=== PATIENT | male | born 1940 | race Caucasian/White ===

== ENCOUNTER 2016-07-15 08:25 | Outpatient (CLI) | payer MEDICARE, OTHER | END 2016-07-15 08:26 | disposition home or self-care (01) | DX: I10 Essential (primary) hypertension (principal); E78.5 Hyperlipidemia, unspecified; R73.9 Hyperglycemia, unspecified ==

== ENCOUNTER 2018-12-26 07:54 | Outpatient (CLI) | payer MEDICARE, OTHER ==
--- NOTE | 2018-12-26 13:03 | XRAY Report ---
Reason: KNEE PAIN,LEFT Procedure Date: 12/26/2018 Accession Number: [id number] / [id number] Procedure: XR - Knee 3 View LT CPT Code: FULL RESULT: EXAM: LEFT KNEE RADIOGRAPHY EXAM DATE: 12/26/2018 08:11 AM. CLINICAL HISTORY: KNEE Pain, left. COMPARISON: None. TECHNIQUE: 3 views. FINDINGS: Bones: Osteopenia. No definite fracture or other bone lesion. Joints: Normal. No effusion. No subluxations. Soft Tissues: Unremarkable. IMPRESSION: No acute disease. [facility]
== END 2018-12-26 07:55 | disposition home or self-care (01) ==
LOC: DI 07:54
PROVIDERS: ATTEND Family Medicine
DX: M25.562 Pain in left knee (principal)

== ENCOUNTER 2019-12-28 10:35 | Outpatient (CLI) | payer MEDICARE, OTHER ==
--- NOTE | 2019-12-28 13:07 | XRAY Report ---
PROCEDURE: Cervical Spine 2 View INDICATIONS: NECK PAIN TECHNIQUE: 3 view(s) of the cervical spine were acquired. COMPARISON: None. FINDINGS: Bones: No fractures or dislocations to the T1 level. The lateral masses of C1 appear intact on the odontoid view. No suspicious bony lesions. There is mild degenerative disc disease seen on the later al view, and no subluxation is associated. Mild to moderate facet osteoarthritis is seen on the front al view from C4 through C7. Soft tissues: No prevertebral soft tissue swelling. IMPRESSION: No trauma found. Mild/moderate degenerative facet osteoarthritis, mild degenerative disc disease. No subluxation, no definite spinal or foraminal stenosis is found. Reviewed by: Lobo Lowe MD on 12/28/2019 1:06 PM PDT Approved by: Lobo Lowe MD on 12/28/2019 1:06 PM PDT Station ID: [id number]
== END 2019-12-28 10:36 | disposition home or self-care (01) ==
LOC: DI 10:35
PROVIDERS: ATTEND Family Medicine
DX: M50.30 Other cervical disc degeneration, unspecified cervical region (principal); M47.812 Spondylosis without myelopathy or radiculopathy, cervical region
CPT/HCPCS: 72040

== ENCOUNTER 2020-04-05 08:23 | Outpatient (CLI) | payer MEDICARE, OTHER ==
[2020-04-05 11:58] LABS: ALBUMIN 4.2 g/dL (3.2-5.5); ALBUMIN/GLOBULIN RATIO 1.4 (1.0-2.2); ALKALINE PHOSPHATASE 63 IU/L (42-121); ALT ALANINE AMINOTRANSFERASE 14 IU/L (10-60); AST ASPARTATE AMINOTRANSFERASE 14 IU/L (10-42); BILIRUBIN,TOTAL 0.9 mg/dL (0.2-1.0); BUN - BLOOD UREA NITROGEN 18 mg/dL (6-20); CARBON DIOXIDE - CO2 26 mmol/L (21-32); CHLORIDE 103 mmol/L (101-111); CHOLESTEROL 141 mg/dL; CREATININE 1.1 mg/dL (0.6-1.2); GLUCOSE 104 mg/dL (70-100); HDL CHOLESTEROL 47 mg/dL; LDL CHOLESTEROL,CALCULATED 70 mg/dL; LDL/HDL RATIO 1.5 (<3.6); SODIUM 138 mmol/L (135-145); TOTAL PROTEIN 7.3 g/dL (6.7-8.2); VLDL CHOLESTEROL 24 mg/dL
[2020-04-05 12:07] LABS: HEMOGLOBIN A1c% 5.1 % (4.27-6.07)
[2020-04-05 15:16] LABS: BASOPHILS % (AUTO) 0.7 %; EOSINOPHILS # (AUTO) 0.1 10^3/uL (0.0-0.7); EOSINOPHILS % (AUTO) 1.4 %; HGB - HEMOGLOBIN 14.1 g/dL (14.0-18.0); LYMPHOCYTES % (AUTO) 17.9 %; MEAN CORPUSCULAR HEMOGLOBIN 29.7 pg (27.0-31.0); MEAN CORPUSCULAR HGB CONC 33.4 g/dL (32.0-36.0); MEAN PLATELET VOLUME 10.9 fL (7.4-11.4); MONOCYTES # (AUTO) 0.5 10^3/uL (0.0-1.0); MONOCYTES % (AUTO) 8.8 %; NEUTROPHILS # (AUTO) 3.9 10^3/uL (1.5-6.6); NEUTROPHILS % (AUTO) 70.7 %; PLT - PLATELET COUNT 204 10^3/uL (130-450); RED BLOOD COUNT 4.74 10^6/uL (4.70-6.10); RED CELL DISTRIBUTION WIDTH 12.3 % (12.0-15.0); WHITE BLOOD COUNT 5.5 x10^3/uL (4.8-10.8)
== END 2020-04-05 23:59 | disposition home or self-care (01) ==
LOC: LAB.WCP 08:23
PROVIDERS: ATTEND Family Medicine
DX: E78.5 Hyperlipidemia, unspecified (principal); C61 Malignant neoplasm of prostate; R73.9 Hyperglycemia, unspecified; E03.9 Hypothyroidism, unspecified; R03.0 Elevated blood-pressure reading, without diagnosis of hypertension
CPT/HCPCS: 36415; 80053; 80061; 83036; 83721; 84153; 84443; 85025